=== PATIENT | female | born 1980 | race Caucasian/White ===

== ENCOUNTER 2016-06-28 06:21 | Day surgery (SDC) | payer BC ==
[2016-06-27 09:15] VITALS: BMI 26.7
--- NOTE | 2016-06-27 16:15 | PREOPHP ---
DATE OF ADMISSION: 06/28/2016 REASON FOR ADMISSION: She is to be admitted for a laparoscopic bilateral tubal ligation. HISTORY OF PRESENT ILLNESS: This is a 36-year-old female, 4, para 4, who has requested ster ilization on the basis of multiparity. The alternatives to methods, the benefits from it, the risks , and possible complications were discussed in detail in the office today. She was made aware also 1% failure rate of this procedure. She was graphically shown how the laparoscopic tubal ligation is done. Then, she signed the appropriate surgical informed consents. PAST MEDICAL HISTORY: The patient has had a microadenoma of the pituitary gland had been treated of f and on with Parlodel. She recently delivered a normal baby vaginally. She has had 4 pregnancies and 4 vaginal deliveries. She denies any medical problems including cardiovascular disease, diabete s, renal disease, liver disease, thyroid disease and neurological problems. ALLERGIES: NO KNOWN ALLERGIES. MEDICATIONS: She has had several blood transfusions in the past for excessive bleeding, possibly du e to the abnormal cycle she has as a consequence of her microadenoma. FAMILY HISTORY: Noncontributory. REVIEW OF SYSTEMS: A 12-point review of systems is noncontributory. PHYSICAL EXAMINATION: GENERAL: Well-developed and nourished, in no distress, alert and oriented x3. Height of 5 feet 1 i nch and a weight of 145 pounds. VITAL SIGNS: Showed the temperature to be 98, blood pressure 115/71, respirations 16 per minute, t he pulse is 72 and regular. HEENT: Within normal limits. Pupils are PERRLA. NECK: Supple. The thyroid is not palpable. There is no lymphadenopathy present. BREASTS: Show no masses or lumps. Nipples are normal. LUNGS: Clear to percussion and auscultation. HEART: Normal sinus rhythm without a murmur. ABDOMEN: Soft. There is no organomegaly or hernia. PELVIC: Normal external genitalia. Vagina is normal. Cervix is normal without lesions. Bimanual exam: The uterus is small, firm in the midline. There are no adnexal masses. EXTREMITIES: Within normal limits. NEUROLOGIC: Also normal. IMPRESSION: 1. Multiparity. The patient desires sterilization. 2. History of microadenoma of the pituitary with galactorrhea. PLAN: The patient is to be admitted tomorrow 06/28/2016. Dictated By: JULIA BONILLA/KEYON Conf#: [id number] DID#: [id number]
[~2016-06-28] VITALS: Ht 154.9 cm; Wt 67.8 kg
[2016-06-28] VITALS (11 sets, daily range): BP systolic 101–118; BP diastolic 57–65; PULSE 52–76; RESP 18–45; Ht 154.9 cm; Wt 67.8 kg
[~2016-06-28 06:21] MED LIST: FERR240T9 PO; PREN1TAB79 PO
[2016-06-28] MEDS ORDERED: GLYCOPYRROLATE 0.4 MG INJ ONE (07:00)
[2016-06-28] MEDS ORDERED: NEOSTIGMINE 3 MG/3 ML SYRINGE ONE (07:00)
[2016-06-28] MEDS ORDERED: BUPIVACAINE 0.5%/EPI (SDV) 30 ML INJ ONE (07:40)
[2016-06-28] MEDS ORDERED: ROCURONIUM 50 MG INJ ONE (08:02)
[2016-06-28] MEDS ORDERED: LIDOCAINE 2% (SDV) 5 ML INJ ONE (08:02)
[2016-06-28] MEDS ORDERED: MIDAZOLAM 1 MG/ML 2 ML INJ ONE (08:02)
[2016-06-28] MEDS ORDERED: PROPOFOL 20 ML ONE (08:02)
[2016-06-28] MEDS ORDERED: SUCCINYLCHOLINE CHLORIDE 100 MG/5 ML SYG IV ONE (08:02)
[2016-06-28] MEDS ORDERED: FENTAnyl 50 MCG/ML VIAL ONE (08:13)
[2016-06-28] MEDS ORDERED: FAMOTIDINE 20 MG INJ ONE (08:15)
[2016-06-28] MEDS ORDERED: ONDANSETRON 4 MG INJ ONE (08:15)
[2016-06-28] MEDS ORDERED: DEXAMETHASONE 4 MG/ML 1 ML INJ ONE (08:15)
[2016-06-28] MEDS ORDERED: CEFAZOLIN 1 GM INJ ONE (08:22)
[2016-06-28] MEDS ORDERED: MEPERIDINE 25 MG INJ IV PRN (08:30)
[2016-06-28] MEDS ORDERED: FENTAnyl 50 MCG/ML VIAL IV PRN (08:30)
[2016-06-28] MEDS ORDERED: OXYCODONE/ACETAMINOPHEN (5/325) TAB PO PRN ×3 (08:30→09:00)
[2016-06-28] MEDS ORDERED: PROCHLORPERAZINE 10 MG INJ IV PRN (08:30)
[2016-06-28] MEDS ORDERED: ONDANSETRON 4 MG INJ IV PRN ×2 (08:30→09:00)
[2016-06-28] MEDS ORDERED: HYDROmorphONE (0.2 MG/ML) 10ML SYG IV PRN (08:30)
[2016-06-28] MEDS ORDERED: DIPHENHYDRAMINE 50 MG INJ IV PRN (08:30)
[2016-06-28] MEDS ORDERED: LACTATED RINGER'S 1,000 ML IV SCH (08:48)
[2016-06-28] MEDS ORDERED: KETOROLAC 30 MG INJ ONE (08:49)
[2016-06-28] MEDS ORDERED: ACETAMINOPHEN 325 MG TAB PO PRN (09:00)
[2016-06-28] MEDS ORDERED: IBUPROFEN 600 MG TAB PO PRN (09:00)
[2016-06-28] MEDS ORDERED: morphine 2 MG INJ IV PRN (09:00)
--- NOTE | 2016-06-28 09:21 | OPR ---
DATE OF OPERATION: 06/28/2016 PREOPERATIVE DIAGNOSES: Multiparity, voluntary sterilization. POSTOPERATIVE DIAGNOSIS: Multiparity, voluntary sterilization. FINDINGS: Severe endometriosis there were many implants of endometrium and the posterior cul-de-sac of Navid was shut off by adhesions. OPERATION PERFORMED: Laparoscopic bilateral tubal ligation. SURGEON: Markos Zuluaga MD ANESTHESIA: General, by Dr. Mart. ESTIMATED BLOOD LOSS: Negligible. SPECIMENS: None. COMPLICATIONS: None. Pictures were taken for documentation. PROCEDURE AND FINDINGS: With the patient under general anesthesia, she was laid on the table in the dorsal lithotomy position. Her abdomen, upper thighs, perineum and vagina were prepped with Betadine and then draped after 3 minutes in the usual sterile fashion. A small incision was done in the middle of the umbilicus. Through this incision and while we were tenting up the anterior abdominal wall, the Veress needle was inserted. Once the tip of the needle was ascertained to be intraperitoneal by the hanging drop saline technique, it was then connected to the CO2 insufflator. Good pneumoperitoneum was obtained. The patient was placed in Trendelenburg position. The needle was removed and a 5-mm trocar was passed in. Through this trocar the laparoscope with the endocamera was inserted. There was a large amount of adhesions in the posterior cul-de-sac of Navid involving the bowel, the fallopian tubes and the posterior wall of the uterus. The left tube was bogged down by the adhesions to the ovary. A second puncture was done under direct vision with another 5-mm trocar in the hypogastric area, without any problems. Through this trocar, the Kleppinger clamp was inserted. The tubal ligation proceded as planned ;the right tube was cauterized in its mid portion with through and through for 1.5 cm first, and then the same was done on the other side. The uterus tried to be mobilized, but it was firmly attached to the posterior uterine wall to the cul-de-sac of Navid. Spots of adhesions and spots of endometriosis were apparent. Pictures were taken for documentation. All the instruments were then removed from the patient's abdomen, as well as much CO2 as possible. The incisions were infiltrated with 0.5% Marcaine with epinephrine , a total of 20 mL. They were closed with 4-0 Monocryl. Band-Aids were applied. The patient withstood the procedure well and was taken to the recovery room with all vital signs stable. EBL was negligible. Needle, sponge and instrument count at the end of the procedure were correct twice. Dictated By: MARKOS BONILLA/KEYON Conf#: [id number] DID#: [id number] MTDD
== END 2016-06-28 11:50 | disposition home or self-care (01) ==
LOC: SDS 06:21
PROVIDERS: ATTEND Specialist
DX: Z30.2 Encounter for sterilization (principal)
CPT/HCPCS: 58670; 84703; 86850; 86900; 86901; J0330; J0690; J1100; J1885; J2250; J2405; J2710; J3010; Z7512; Z7610

== ENCOUNTER 2018-01-12 23:34 | Emergency (ER) | END 2018-01-13 05:16 | disposition home or self-care (01) ==

== ENCOUNTER 2018-01-14 14:54 | Emergency (ER) | END 2018-01-14 18:59 | disposition home or self-care (01) ==

== ENCOUNTER 2018-04-02 16:12 | Emergency (ER) | END 2018-04-03 02:20 | disposition short-term general hospital (02) ==